=== PATIENT | female | born 1950 | race Caucasian/White ===

== ENCOUNTER 2022-03-27 10:39 | Outpatient (CLI) | payer OTHER | END 2022-03-27 10:40 | disposition home or self-care (01) | LOC: TBSIIMAG 10:39 | PROVIDERS: ATTEND Surgery | DX: M51.36 Other intervertebral disc degeneration, lumbar region (principal); M47.816 Spondylosis without myelopathy or radiculopathy, lumbar region; M43.16 Spondylolisthesis, lumbar region; M51.37 Other intervertebral disc degeneration, lumbosacral region; M51.35 Other intervertebral disc degeneration, thoracolumbar region; M48.07 Spinal stenosis, lumbosacral region; M48.061 Spinal stenosis, lumbar region without neurogenic claudication; M48.05 Spinal stenosis, thoracolumbar region | CPT/HCPCS: 72110; 72148 ==

== ENCOUNTER 2022-05-02 10:11 | Outpatient (CLI) | payer OTHER ==
[2022-05-02 11:57] LABS: Hemoglobin 11.4 g/dL (12.0-15.5); Mean Corpuscular HGB CONC 32.3 g/dL (32.0-36.0); Mean Corpuscular Hemoglobin 29.3 pg (27.0-33.0); Mean Corpuscular Volume 90.7 fl (81.6-98.3); Mean Platelet Volume 11.5 fl (7.4-10.4); Platelet Count 193 10x3/uL (150-450); RBC Distribution Width 12.6 % (11.5-14.5); Red Blood Cell (RBC) Count 3.89 10x6/uL (3.90-5.03); White Blood Cell (WBC) Count 5.7 10x3/uL (3.5-10.5)
[2022-05-02 12:12] LABS: INR-International Normal Ratio 0.9; PTT 26.3 sec (22.0-33.0); Prothrombin Time 10.2 sec (9.5-12.1)
[2022-05-02 12:15] LABS: Anion Gap 14 mmol/L (10-20); BUN (Urea Nitrogen) 15 mg/dL (9.8-20.1); Calc. Creatinine Clearance 0 mL/min (70-130); Carbon Dioxide 25 mmol/L (23-31); Chloride 104 mmol/L (98-107); Estimated GFR 90; Glucose 88 mg/dL (83-110); Potassium 3.9 mmol/L (3.5-5.1); Sodium 139 mmol/L (136-145)
== END 2022-05-02 10:12 | disposition home or self-care (01) ==
LOC: LABBT 10:11
PROVIDERS: ATTEND Surgery
DX: Z01.818 Encounter for other preprocedural examination (principal); M47.16 Other spondylosis with myelopathy, lumbar region; M48.062 Spinal stenosis, lumbar region with neurogenic claudication
CPT/HCPCS: 80048; 85027; 85610; 85730; 93005; 93010

== ENCOUNTER 2022-06-03 17:15 | Inpatient (IN) | payer MEDICARE ==
[2022-06-04 11:22] LABS: SARS-CoV-2 NAA Rapid Test Not Detected (NotDetected)
[2022-06-04] MEDS ORDERED: Midazolam HCl 2 mg/2 ml Vial ONE (12:55)
[2022-06-04] MEDS ORDERED: fentaNYL PF 100 MCG/2 ML SYRINGE ONE ×3 (13:08→17:55)
[2022-06-04] MEDS ORDERED: Acetaminophen/Codeine 30-300mg Tablet PO PRN (13:22)
[2022-06-04] MEDS ORDERED: diphenhydrAMINE 25 MG CAP PO PRN (13:22)
[2022-06-04] MEDS ORDERED: traMADol HCl 50 MG TAB PO PRN (13:22)
[2022-06-04] MEDS ORDERED: Acetaminophen 325 MG TAB PO PRN (13:22)
[2022-06-04] MEDS ORDERED: Ondansetron PF 4 MG/2 ML Vial IVP PRN (13:22)
[2022-06-04] MEDS ORDERED: tiZANidine HCl 4 MG TAB PO PRN (13:26)
[2022-06-04] MEDS ORDERED: Bacitracin Zinc Ointment 30 gm TUBE ONE (13:26)
[2022-06-04] MEDS ORDERED: Thrombin 5000 UNITS/5 ML VIAL ONE (13:26)
[2022-06-04] MEDS ORDERED: Vancomycin 1 GM VIAL ONE (13:27)
[2022-06-04] MEDS ORDERED: Morphine 4 MG/ML VIAL SLOW IVP PRN (13:30)
[2022-06-04] MEDS ORDERED: CEFAZOLIN 2 GM VIAL ONE (13:36)
[2022-06-04] MEDS ORDERED: Sodium Chloride 0.9% 100 ML ONE (13:36)
[2022-06-04] MEDS ORDERED: SUGAMMADEX SODIUM 200 MG/2 ML VIAL ONE (13:41)
[2022-06-04] MEDS ORDERED: Ondansetron PF 4 MG/2 ML Vial ONE ×2 (13:50→18:46)
[2022-06-04] MEDS ORDERED: Rocuronium Bromide 10 MG/ML (10ML VIAL) ONE (13:50)
[2022-06-04] MEDS ORDERED: Esmolol 100 MG/10 ML VIAL ONE ×2 (13:50→16:00)
[2022-06-04] MEDS ORDERED: Dexamethasone 20 MG/5 ML VIAL ONE (13:50)
[2022-06-04] MEDS ORDERED: Glycopyrrolate 0.2 MG/ML 5 ML SYRINGE ONE (13:50)
[2022-06-04] MEDS ORDERED: NEOSTIGMINE 3 MG/3 ML SYR 3 MG/3 ML SYRINGE ONE (13:50)
[2022-06-04] MEDS ORDERED: PROPOFOL 200 MG/20 ML VIAL ONE (13:50)
[2022-06-04] MEDS ORDERED: traZODone HCl 50 MG TAB PO PRN (15:15)
[2022-06-04] MEDS ORDERED: FENTANYL 50 MCG/ML 1 ML VIAL ONE ×2 (15:24→15:38)
[2022-06-04] MEDS ORDERED: Metoprolol Tartrate 5 MG/5 ML VIAL ONE (15:26)
[2022-06-04] MEDS ORDERED: Ketorolac Tromethamine 30 MG/ML VIAL ONE (15:35)
[2022-06-04] MEDS ORDERED: PHENYLEPHRINE-NS 100 MCG/ML 10 ML SYRINGE ONE (15:56)
[2022-06-04] MEDS ORDERED: Digoxin 0.5 MG/2 ML AMP ONE (17:22)
[2022-06-04] MEDS ORDERED: Amiodarone 450 MG in Dextrose 5% in Water 250 ML IVPB SCH (17:30)
[2022-06-04] MEDS ORDERED: Amiodarone 150 MG in Dextrose 5% in Water 100 ML IVPB SCH (17:30)
[2022-06-04] MEDS ORDERED: Digoxin 0.5 MG/2 ML AMP SLOW IVP SCH ×2 (17:30→23:00)
[2022-06-04] MEDS ORDERED: Clindamycin 150 MG CAP PO SCH (18:00)
[2022-06-04] MEDS ORDERED: Diltiazem HCl 125 MG, Admixture Fee 1 EACH in Sodium Chloride 0.9% 100 ML IVPB SCH (18:30)
[2022-06-04] MEDS ORDERED: Morphine 2 MG/ML VIAL ONE (19:39)
[2022-06-04] MEDS ORDERED: HYDROcodone/Acetaminophen 7.5/325 mg Tablet ONE (20:08)
[2022-06-04 20:09] LABS: Troponin I 0.011 ng/mL (< 0.028)
[2022-06-04] MEDS ORDERED: CEFAZOLIN 2 GM in Sodium Chloride 0.9% 100 ML IVPB SCH (21:00)
[2022-06-04] MEDS: Gabapentin 300 MG CAP PO SCH (21:39)
[2022-06-04] MEDS: DULoxetine 60 MG CAP PO SCH (21:53)
[2022-06-04] MEDS: Sodium Chloride 0.9% 1,000 ML IV SCH (22:55)
[2022-06-04] MEDS: HYDROcodone/Acetaminophen 7.5/325 mg Tablet PO PRN (23:12)
[2022-06-04] MEDS: Zolpidem Tartrate 5 MG TAB PO PRN (23:12)
[2022-06-05] MEDS: Clindamycin 150 MG CAP PO SCH ×4 (04:02→20:13)
[2022-06-05] MEDS: Sodium Chloride 0.9% 1,000 ML IV SCH ×2 (04:04→14:49)
[2022-06-05 05:57] LABS: #Lymphocytes 1.5 thou/uL (1.20-3.40); #Monocytes 0.8 thou/uL (0.11-0.59); #Neutrophils 7.9 thou/uL (1.40-6.50); %Eosinophils 0.4 % (0.0-10.0); %Lymphocytes 14.8 % (21.0-51.0); %Monocytes 7.8 % (0.0-10.0); Hemoglobin 11.2 g/dL (12.0-16.0); Mean Corpuscular Hemoglobin 29.5 pg (27.0-31.0); Mean Corpuscular Volume 95.1 fl (78.0-98.0); Mean Platelet Volume 7.3 fL (7.4-10.4); Platelet Count 326 10x3/uL (130-400); RBC Distribution Width 13.5 % (11.5-14.5); White Blood Cell (WBC) Count 10.2 10x3/uL (4.8-10.8)
[2022-06-05 06:17] LABS: Anion Gap 16 mmol/L (10-20); BUN (Urea Nitrogen) 12 mg/dL (9.8-20.1); Calc. Creatinine Clearance 96 mL/min (70-130); Calcium 9.1 mg/dL (7.8-10.44); Carbon Dioxide 19 mmol/L (23-31); Cardiac Risk 2.8 (Less than 4.5); Chloride 109 mmol/L (98-107); Cholesterol 152 mg/dl (< 200 Desired); Estimated GFR 93; Glucose 117 mg/dL (83-110); HDL Cholesterol 55 mg/dL (>60 Neg Risk); LDL Cholesterol, Calculated 86 mg/dL; Potassium 4.5 mmol/L (3.5-5.1); Sodium 139 mmol/L (136-145); Triglycerides 54 mg/dL (Less than 150)
[2022-06-05 06:29] LABS: Digoxin 1.25 ng/mL (0.8-2.0)
[2022-06-05] MEDS: Oxybutynin ER 5 MG TAB PO SCH (08:38)
[2022-06-05] MEDS: Gabapentin 300 MG CAP PO SCH ×3 (08:39→20:13)
[2022-06-05] MEDS: Calcium Carbonate 600 MG + Vit D TAB PO SCH (08:39)
[2022-06-05] MEDS: Lisinopril 20 MG TAB PO SCH (08:40)
[2022-06-05] MEDS: Multivit, Therapeutic 1 TAB PO SCH (08:40)
[2022-06-05] MEDS: DULoxetine 60 MG CAP PO SCH ×2 (08:40→20:13)
[2022-06-05] MEDS: Amlodipine 5 MG TAB PO SCH (08:40)
[2022-06-05 08:41] VITALS: BP 145/81
[2022-06-05] MEDS: CeleCOXIB 100 MG CAP PO SCH (08:41)
[2022-06-05] MEDS ORDERED: Amlodipine 10 MG TAB PO SCH (09:00)
[2022-06-05 13:53] VITALS: BMI 33.4
[2022-06-05] MEDS: HYDROcodone/Acetaminophen 7.5/325 mg Tablet PO PRN ×2 (14:47→20:17)
[2022-06-05] MEDS: Zolpidem Tartrate 5 MG TAB PO PRN (20:16)
[2022-06-06] MEDS: Clindamycin 150 MG CAP PO SCH ×2 (03:26→08:52)
[2022-06-06 04:13] LABS: Troponin I 0.014 ng/mL (< 0.028)
[2022-06-06] MEDS: Sodium Chloride 0.9% 1,000 ML IV SCH (04:58)
[2022-06-06 08:22] VITALS: TEMP 97.9
[2022-06-06] MEDS: Gabapentin 300 MG CAP PO SCH (08:51)
[2022-06-06] MEDS: CeleCOXIB 100 MG CAP PO SCH (08:52)
[2022-06-06] MEDS: DULoxetine 60 MG CAP PO SCH (08:52)
[2022-06-06] MEDS: Calcium Carbonate 600 MG + Vit D TAB PO SCH (08:52)
[2022-06-06] MEDS: Oxybutynin ER 5 MG TAB PO SCH (08:52)
[2022-06-06] MEDS: Multivit, Therapeutic 1 TAB PO SCH (08:52)
[2022-06-06] MEDS: Lisinopril 20 MG TAB PO SCH (08:52)
[2022-06-06] MEDS: Amlodipine 5 MG TAB PO SCH (08:52)
[2022-06-06] MEDS: HYDROcodone/Acetaminophen 7.5/325 mg Tablet PO PRN (11:03)
== END 2022-06-06 13:21 | disposition home or self-care (01) | DRG 921 ==
LOC: SURG A 06-04 09:57 → EDSTATUS 06-04 17:15 → IMCU/EMU 06-04 22:17
PROVIDERS: ADMIT Surgery; ATTEND Surgery
PROC: 0HQ6XZZ Repair Back Skin, External Approach (ICD-10-PCS; principal; 2022-06-06)
PROC: 3E10X8Z Irrigation of Skin and Mucous Membranes using Irrigating Substance (ICD-10-PCS; 2022-06-06)
DX: T81.30XA Disruption of wound, unspecified, initial encounter (principal); Z20.822 Contact with and (suspected) exposure to COVID-19; I48.91 Unspecified atrial fibrillation; I10 Essential (primary) hypertension; M06.9 Rheumatoid arthritis, unspecified; Z96.651 Presence of right artificial knee joint; Z90.49 Acquired absence of other specified parts of digestive tract; Z90.710 Acquired absence of both cervix and uterus; Z79.899 Other long term (current) drug therapy; Y83.8 Other surgical procedures as the cause of abnormal reaction of the patient, or of later complication, without mention of misadventure at the time of the procedure; M79.89 Other specified soft tissue disorders
CPT/HCPCS: 36415; 80048; 80061; 80162; 84484; 85025; 85027; 85610; 85652; 85730; 86140; 93005; 93010; 93306; 93970; 97139; J1100; J1160; J1885; J2250; J2270; J2405; J2704; J3010; J3370; J3490; J7050; U0002

== ENCOUNTER 2022-10-01 09:08 | Outpatient (CLI) | payer MEDICARE | END 2022-10-01 09:09 | disposition home or self-care (01) | LOC: TBSIIMAG 09:08 | PROVIDERS: ATTEND Surgery | DX: M47.26 Other spondylosis with radiculopathy, lumbar region (principal); M25.78 Osteophyte, vertebrae; R29.890 Loss of height; M62.18 Other rupture of muscle (nontraumatic), other site; M47.817 Spondylosis without myelopathy or radiculopathy, lumbosacral region; M48.062 Spinal stenosis, lumbar region with neurogenic claudication | CPT/HCPCS: 72100; 72148 ==